=== PATIENT | male | born 1950 | race American Indian/Alaskan Native ===

== ENCOUNTER 2019-03-04 09:53 | Emergency (ER) | payer MEDICARE ==
--- NOTE | 2019-03-04 10:23 | Emergency Department Report ---
ED CPR HPI - General Chief Complaint: Cardiac Arrest/CPR Stated Complaint: CARDIAC ARREST Time Seen by Provider: 03/04/19 10:16 Source: EMS Mode of arrival: Ambulatory Limitations: Other - History of Present Illness Initial Comments: 68 year old male presents to the hospital cardiopulmonary arrest. EMS received a call of lethargy and alteration in mental status. Patient apparently has been thought to be due to herniated disc. As per family, doctor informed him to double up on his pain medication medications which include Zanaflex and gabapentin. Patient took this extra dose last night and slipped. had trouble waking him up this morning so called EMS. Upon EMS arrival patient was lethargic but opens his eyes. He was unable to speak or ambulate. They transported him via stretcher and once they got inside the ambulance patient went into cardiopulmonary arrest. Patient received CPR with chest compressions and bag valve mask ventilation with oral airway. Endotracheal intubation failed 2. Accu-Chek was noted to be 26 field. Patient received IM glucagon and narcane without improvement. EMS personnel unable to establish IV access so no additional medications given in route. Down time estimated at 30 minutes at time of patient arrival. He is pulseless, apneic, in asystole, with fixed and dilated pupils. ED Review of Systems ROS: Stated complaint: CARDIAC ARREST Other details as noted in HPI Comment: Unobtainable due to pts medical conditions ED Physical Exam - General Limitations: Other - Other Other exam information: Normal: No acute distress Head: Atraumatic Eyes: Pupils fixed and dilated ENT: Moist mucous membranes Neck: Normal appearance Chest: Apneic, bag valve mask ventilations upon arrival Cardiovascular: Pulseless Abdomen: Soft, nondistended, no rebound or guarding, normal bowel sounds Back: Normal inspection Extremity: Normal appearance Neuro: GCS equal 3 Skin: Skin - EJ/Peripheral Line Neck R Time Out Performed: Yes Indications: nurses unable to establis Skin Cleansed in Sterile Fashion: Yes Size: 20 Dressing Placed: Tegaderm Patient Tolerated Procedure: well - Intubation Time Out Performed: Yes Sedative: none Laryngoscope: Morelia Size: 4 ET Tube Size: 7.5 Tube Secured Depth (cm): 24 Tube Secured Location: lips Tube Placement Confirmation: visualized tube passing t, equal breath sounds bilat, no breath sounds over epi Patient Tolerated Procedure: well Intubation Complications: none Additional Comments: Patient initially intubated by ET tube removed due to lack of CO2 detection color change. Patient really intubated and to visualize go to cords with breath sounds equal bilaterally without breath sounds over the epigastrium. No color change with CO2 detector. I suspect this is secondary to prolonged down time and a false negative. ED Medical Decision Making - Medical Decision Making CPR continued upone arrival. I obtained right EJ with good blood return. Taped in place. Patient intubated, received several doses of epinephrine, D50, and sodium bicarbonate and remained in asystole throughout resuscitation efforts. Patient with prolonged pulselessness with fixed and dilated pupils. Time of 10:04 AM family members informed of patient's . - Differential Diagnosis pe, mi, overdose, arrhythmia, hypoglycemia Critical Care Time: No Critical care attestation.: If time is entered above; I have spent that time in minutes in the direct care of this critically ill patient, excluding procedure time. ED Disposition Clinical Impression: Cardiopulmonary arrest Disposition: DC-20 Is pt being admited?: No Condition: Serious Time of Disposition: 10:35
[2019-03-04] MEDS ORDERED: ADRENALIN ONE (13:40)
== END 2019-03-04 12:26 ==
LOC: EDBD → ED 09:53
DX: I46.9 Cardiac arrest, cause unspecified (principal)
CPT/HCPCS: 31500; 36569; 92950; 99285; J0171